=== PATIENT | male | born 1995 | race Caucasian/White ===

== ENCOUNTER → 2021-09-25 06:59 | Outpatient (CLI) | payer OTHER, SELFPAY ==
--- NOTE | 2021-09-25 | DI.MRI.S_ITS ---
MR LUMBAR SPINE WO CON INDICATIONS: Radiculopathy, lumbar region TECHNIQUE: Noncontrast sagittal T1 spin echo and T2 fast echo, sagittal STIR, axial T1 and T2 fast spin echo through the lumbar spine. In cases with scoliosis, additional coronal T2 fast spin echo may be performed. COMPARISON: [facility] Outside Film, CR, XR LUMBAR SPINE 2 OR 3 VIEWS, 05/30/2021, 15:01. FINDINGS: Image quality: Excellent. Alignment and Curvature: There is normal bony alignment. Bone Marrow: Marrow is of normal overall signal. No acute vertebral body compression fractures. Spinal Cord: Conus medullaris terminates at the L2-L3 level. Visualized cord demonstrates normal signal and size. Paraspinous Soft Tissues: No paravertebral masses. T12-L1: Mild disc bulge. No canal stenosis or foraminal stenosis. L1-L2: No canal stenosis or foraminal stenosis. L2-L3: No canal stenosis or foraminal stenosis. L3-L4: No canal stenosis or foraminal stenosis. L4-L5: Mild broad-based posterior disc protrusion, eccentric to the left. Disc material abuts the bilateral L5 nerve roots in the lateral recesses and minimally displaces the left L5 nerve root posteriorly. There is a foraminal disc bulge on the left. Disc material abuts the left L4 nerve root in the left foramen, resulting in mild foraminal stenosis. L5-S1: Mild bilateral facet hypertrophy. Posterior annulus tear plus minimal disc bulge. No canal stenosis or foraminal stenosis. IMPRESSION: 1. At L4-L5, there is mild broad-based posterior disc protrusion, eccentric to the left. Disc material abuts the bilateral L5 nerve roots in the lateral recesses and minimally displaces the left L5 nerve root posteriorly. There is also left foraminal disc bulge. Disc material abuts the left L4 nerve root in the left foramen. 2. Annulus tear plus disc bulge at L5-S1 without canal stenosis. Dictated by: Trenton Green M.D. on 09/25/2021 at 9:58 Approved by: Trenton Green M.D. on 09/25/2021 at 10:08
== END ==
PROVIDERS: Referring Provider Physical Medicine & Rehabilitation Pain Medicine; Visit Provider Physical Medicine & Rehabilitation Pain Medicine
DX: M51.16 Intervertebral disc disorders with radiculopathy, lumbar region; M48.07 Spinal stenosis, lumbosacral region
CPT/HCPCS: 72148